=== PATIENT | female | born 1980 | race Caucasian/White ===

== ENCOUNTER → 2021-09-12 09:03 | Outpatient (CLI) | payer OTHER, SELFPAY ==
[2021-09-13 09:32] LABS: Covid-19 Nasal PCR Sendout Lex NOT DETECTED
== END ==
PROVIDERS: Visit Provider Nurse Practitioner
DX: Z20.822 Contact with and (suspected) exposure to COVID-19 (principal)
CPT/HCPCS: C9803; U0004; U0005